=== PATIENT | male | born 1935 | race Caucasian/White ===

== ENCOUNTER 2018-07-09 20:06 | Emergency (ER) | payer OTHER, MEDICAID ==
[~2018-07-09] VITALS: Ht 175.3 cm; Wt 68.0 kg
[2018-07-09 20:09] VITALS: Ht 175.3 cm; Wt 68.0 kg
[2018-07-09 23:21] VITALS: BP 120/73
== END 2018-07-09 23:21 | disposition home or self-care (01) ==
LOC: ED 20:06
DX: F03.90 Unspecified dementia, unspecified severity, without behavioral disturbance, psychotic disturbance, mood disturbance, and anxiety (principal); Z95.0 Presence of cardiac pacemaker
CPT/HCPCS: 82962